=== PATIENT | male | born 1960 | race African-American/Black ===

== ENCOUNTER 2016-08-19 09:23 | Emergency (ER) | payer OTHER ==
[~2016-08-19] VITALS: Ht 177.8 cm; Wt 78.8 kg
[~2016-08-19 09:23] MED LIST: CIPRO500 MG PO; MOTRIN800 MG PO
[2016-08-19] MEDS ORDERED: NORCO 5/3251 TABLET PO (09:52)
[2016-08-19] MEDS ORDERED: ACYCLOVIR200 MG PO (09:52)
[2016-08-19 10:18] VITALS: BP 145/97
== END 2016-08-19 10:20 | disposition home or self-care (01) ==
LOC: EME 09:23
DX: B02.9 Zoster without complications (principal); L30.9 Dermatitis, unspecified; F17.200 Nicotine dependence, unspecified, uncomplicated
CPT/HCPCS: 99281; 99284